=== PATIENT | female | born 1965 | race American Indian/Alaskan Native ===

== ENCOUNTER 2016-12-29 16:16 | Emergency (ER) | payer OTHER ==
[2016-12-29] MEDS ORDERED: TRIPLE ANTIBIOTIC TP ONE ×2 (21:35→21:36)
[2016-12-29] MEDS ORDERED: BOOSTRIX IM ONE (21:36)
--- NOTE | 2016-12-29 21:36 | Emergency Department Report ---
ED Laceration HPI - HPI Chief Complaint: Laceration/Recheck/Suture Stated Complaint: FINGER LAC Time Seen by Provider: 12/29/16 21:25 Location: Upper Extremity (right third finger) Laceration Symptoms: Yes Pain (right third digit), No Foreign Body Sensation Other History: Patient here reports that she cut her right third finger today while she was at work. She says she came because she needs a tetanus shot is also bleeding a lot but noted.. Denies any numbness or tingling. He is 6 out of 10 and feels dull. She says she cut her finger on metal object ED Review of Systems ROS: Stated complaint: FINGER LAC Other details as noted in HPI Comment: All other systems reviewed and negative Constitutional: denies: chills, fever Respiratory: no symptoms reported Cardiovascular: denies: chest pain, palpitations, edema, syncope Musculoskeletal: arthralgia. 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 No distress. Alert and acting appropriately. This is a 51-year-old female well-nourished well-developed in no acute distress. Lungs: Clear Auscultated bilaterally no rhonchi wheezes or rales. Skin: Patient with superficial laceration to tuft of left distal finger. No bleeding noted. Linear and wound edges well approximated appears to be healing. Extremity: Clubbing, cyanosis or edema. No neurovascular compromise. +2 radial and ulnar pulses. Wound Length (cm): 1 Laceration Location: Upper Extremity (left third digit. Located tuft of finger. No bleeding noted and wound edges already approximated.) Laceration Exam: Yes Normal Distal CMS, No Foreign Body, No Exposed Tendon, Vessel, or Nerve, No Tendon Injury ED Course Vital Signs 12/29/16 16:23 Temperature 97.6 F Pulse Rate 77 Respiratory 18 Rate Blood Pressure 136/81 O2 Sat by Pulse 98 Oximetry - Reevaluation(s) Reevaluation #1: 12/29/16 21:43 Patient given tetanus vaccine in emergency room. Laceration site cleansed with normal saline and Neosporin ointment placed the site. Sterile dry gauze dressing applied. ED Medical Decision Making - Medical Decision Making ED course: Patient given Boostrix 0.5 miles an emergency room. Laceration cleansed with normal saline and Neosporin ointment placed followed by dry gauze dressing. Patient discharged home with prescription for Motrin/Keflex and to follow-up with her primary care physician in 2 days. SHe was understanding of discharge instructions. Critical care attestation.: If time is entered above; I have spent that time in minutes in the direct care of this critically ill patient, excluding procedure time. ED Disposition Clinical Impression: Laceration of finger Qualifiers: Encounter type: initial encounter Qualified Code(s): S61.219A - Laceration without foreign body of unspecified finger without damage to nail, initial encounter Disposition: DISCHARGED TO HOME OR SELFCARE Is pt being admited?: No Does the pt Need Aspirin: No Condition: Stable Instructions: Laceration (ED) Additional Instructions: Keep affected area clean and dry. Prescriptions: Cephalexin [Keflex] 500 mg PO Q8HR #15 cap Ibuprofen [Motrin] 600 mg PO Q8H PRN #15 tablet PRN Reason: Pain Referrals: PRIMARY CARE, [Primary Care Provider] - 3-5 Days Forms: Work/School Release Form(ED)
[2016-12-29 22:01] VITALS: BP 129/74
== END 2016-12-29 22:01 | disposition home or self-care (01) ==
LOC: ED 16:16
DX: S61.212A Laceration without foreign body of right middle finger without damage to nail, initial encounter (principal); J45.909 Unspecified asthma, uncomplicated; I10 Essential (primary) hypertension; Z86.19 Personal history of other infectious and parasitic diseases; W45.8XXA Other foreign body or object entering through skin, initial encounter; W22.8XXA Striking against or struck by other objects, initial encounter; Y93.89 Activity, other specified; Y92.89 Other specified places as the place of occurrence of the external cause; Y99.0 Civilian activity done for income or pay
CPT/HCPCS: 90471; 90715; A6250